=== PATIENT | female | born 1995 | race Caucasian/White ===

== ENCOUNTER 2021-07-15 12:36 | Inpatient (IN) | payer SELFPAY ==
[~2021-07-15] VITALS: Ht 165.1 cm; Wt 79.4 kg
[2021-07-15] MEDS ORDERED: ONDANSETRON 4 MG/2 ML VIAL IV ONE (13:00)
[2021-07-15 13:15] LABS: HEMATOCRIT 37.4 % (31.2-41.9); MEAN CORPUSCULAR HEMOGLOBIN 28.2 uug (24.7-32.8); MEAN CORPUSCULAR VOLUME 84.3 fL (75.5-95.3); PLATELET COUNT (AUTO) 287 K/uL (179-408)
[2021-07-15] MEDS ORDERED: LORAZEPAM 2 MG/1 ML VIAL ONE (13:17)
[2021-07-15] MEDS ORDERED: ONDANSETRON 4 MG/2 ML VIAL ONE (13:17)
[2021-07-15 13:24] LABS: CARBON DIOXIDE 26 mmol/L (21-32); CHLORIDE 103 mmol/L (98-107); CREATININE 0.6 mg/dL (0.6-1.3); GLUCOSE 132 mg/dL (74-106); POTASSIUM 3.8 mmol/L (3.5-5.1); UREA NITROGEN, BLOOD 8 mg/dL (7-18)
--- NOTE | 2021-07-15 13:24 | NUR ---
PT IS IN ROOM #2B. DR PAGAN EVALUATED THE PT.
[2021-07-15 13:29] LABS: CREATINE KINASE, TOTAL 72 U/L (26-192); ETHANOL < 3 MG/DL (0-0)
[2021-07-15 13:30] LABS: ALANINE AMINOTRANSFERASE 25 U/L (14-59); ALKALINE PHOSPHATASE 75 U/L (50-136); ASPARTATE AMINOTRANSFERASE 24 U/L (15-37); BILIRUBIN,DIRECT 0.2 mg/dL (0.0-0.2); BILIRUBIN,TOTAL 0.8 mg/dL (0.2-1.0); TOTAL PROTEIN, SERUM 8.1 g/dL (6.4-8.2)
[2021-07-15] MEDS ORDERED: VITAMIN B1 PO (14:13)
[2021-07-15] MEDS ORDERED: LEVE500T9 PO (14:13)
[2021-07-15] MEDS ORDERED: DIAZ5TAB PO (14:13)
[2021-07-15] MEDS ORDERED: MULT-594 PO (14:13)
[2021-07-15] MEDS ORDERED: TRAZ-257 PO (14:13)
[2021-07-15] MEDS ORDERED: ONDA4TAB5 PO (14:13)
[2021-07-15] MEDS ORDERED: FOLI1TAB27 PO (14:13)
[2021-07-15] MEDS ORDERED: SUBUTEX PO (14:13)
[2021-07-15] MEDS ORDERED: FLEXERIL PO (14:13)
[2021-07-15] MEDS ORDERED: GABA600T12 PO (14:13)
[2021-07-15] MEDS ORDERED: DESV50TA PO (14:13)
[2021-07-15] MEDS ORDERED: HYDR-501 PO (14:13)
[2021-07-15] MEDS ORDERED: LORAZEPAM 2 MG/1 ML VIAL IV ONE (15:00)
[2021-07-15 15:35] LABS: *AMPHETAMINE, URINE NEGATIVE (NEGATIVE); *CANNABINOID, URINE NEGATIVE (NEGATIVE); *COCCAINE, URINE NEGATIVE (NEGATIVE); *OPIATE, URINE NEGATIVE (NEGATIVE); *PHENCYCLIDINE SCREEN,URINE NEGATIVE (NEGATIVE)
--- NOTE | 2021-07-15 17:50 | NUR ---
report was given to furnace brazer. pt was transfered to room #301b.
[2021-07-15 18:01] VITALS: BP 120/58
[2021-07-15] MEDS ORDERED: TRAZODONE 100 MG TABLET PO PRN (19:15)
[2021-07-15] MEDS ORDERED: ACETAMINOPHEN 325 MG TABLET PO PRN (19:15)
[2021-07-15] MEDS ORDERED: hydrOXYzine HCL 25 MG TABLET PO PRN (19:15)
[2021-07-15] MEDS ORDERED: LORAZEPAM 2 MG/1 ML VIAL IV PRN (19:15)
[2021-07-15] MEDS ORDERED: ONDANSETRON 4 MG/2 ML VIAL IV PRN (19:15)
--- NOTE | 2021-07-15 20:00 | NUR ---
RECEIVED PATIENT AWAKE IN BED. A/O X4. DENIES ANY PAIN. NO SOB NOTED. VSS. ON TELE SR. PATIENT C/O ANXIETY. ASKING FOR HER VALIUM. ALL NEEDS ATTENDED. CALL LIGHT IN REACH. WILL CONTINUE TO MONITOR AND ASSESS.
[2021-07-15] MEDS: DIAZEPAM 5 MG TABLET PO PRN (20:32)
[2021-07-15] MEDS: levETIRAcetam 500 MG TABLET PO SCH (20:32)
--- NOTE | 2021-07-15 22:15 | NUR ---
PATIENT ASLEEP IN BED. ON TELE SR. PATIENT HAD A RUN OF ST UP TO 140. PATIENT ASLEEP IN BED. NO SEIZURE NOTED. WILL CONTINUE TO MONITOR AND ASSESS.
[2021-07-16 00:14] VITALS: BP 105/62
[2021-07-16] MEDS: DIAZEPAM 5 MG TABLET PO PRN (04:19)
[2021-07-16 04:29] VITALS: BP 102/48
[2021-07-16 06:02] LABS: HEMATOCRIT 33.8 % (31.2-41.9); MEAN CORPUSCULAR HEMOGLOBIN 27.8 uug (24.7-32.8); MEAN CORPUSCULAR VOLUME 85.5 fL (75.5-95.3); PLATELET COUNT (AUTO) 234 K/uL (179-408)
--- NOTE | 2021-07-16 06:26 | NUR ---
Patient slept well throughout the night. On tele sr. Call light in reach.
[2021-07-16] MEDS ORDERED: PANTOPRAZOLE SODIUM 40 MG TABLET.DR PO SCH (07:00)
[2021-07-16 07:15] LABS: BILIRUBIN,TOTAL 0.8 mg/dL (0.2-1.0); CREATININE 0.6 mg/dL (0.6-1.3); MAGNESIUM 2.2 mg/dL (1.8-2.4); PHOSPHOROUS 3.3 mg/dL (2.5-4.9); POTASSIUM 3.7 mmol/L (3.5-5.1); TOTAL PROTEIN, SERUM 7.3 g/dL (6.4-8.2)
[2021-07-16 07:35] LABS: THYROID STIMULATING HORMONE 0.286 mIU/mL (0.358-3.740)
--- NOTE | 2021-07-16 07:55 | NUR ---
ALERT AND ORIENTED STATED THAT SHE FEELS VERY ANXIOUS NEEDED TO RELAX ASKING FOR SUBAXON CALLED BOB SUAZO EPIC PROVIDER AND LEFT HER A MESSAGE.
--- NOTE | 2021-07-16 08:20 | NUR ---
PATIENT STATED WANTS TO GO AMA ENCOURAGED HER TO WAIT FOR THE EPIC PROVIDER AND SHE SAID OKAY.
[2021-07-16] MEDS: levETIRAcetam 500 MG TABLET PO SCH (08:26)
[2021-07-16] MEDS ORDERED: ONDANSETRON 4 MG/2 ML VIAL IV ONE (08:45)
--- NOTE | 2021-07-16 08:54 | NUR ---
ZOFRAN ADDITIONAL ONE DOSE GIVEN TO PATIENT FOR NAUSEA SHE STATED THAT SHE FEELS LIKE VOMITING DESPITE THE FACT THAT SHE RECEIVED ZOFRAN AT 0500
[2021-07-16] MEDS ORDERED: Medication Not On Formulary EA (Multivitamins (Multivitamin) 1 TAB) PO SCH (09:00)
[2021-07-16] MEDS ORDERED: FOLIC ACID 1 MG TABLET PO SCH (09:00)
[2021-07-16] MEDS ORDERED: THIAMINE HCL 100 MG TABLET PO SCH (09:00)
[2021-07-16] MEDS ORDERED: MULTIVITAMINS,THERAPEUTIC TABLET PO SCH (09:00)
--- NOTE | 2021-07-16 10:00 | NUR ---
CALL RECEIVED FROM JOYCE THE DIRECTOR [employer] RESEARCH AT THE [facility] WHERE PATIENT LIVES AND STATED THAT UNLESS PATIENT IS MEDICALLY CLEAR AND DISCHARGED THEY WILL NOT BE ABLE TO TAKE HER BACK AT THE [facility].
--- NOTE | 2021-07-16 10:30 | NUR ---
BOB TRUJILLO AWARE THAT PATIENT WANTS TO LEAVE DID NOT WANT TO WAIT FOR HER STATED IF PATIENT IS ALERT AND ORIENTED SHE CAN LEAVE AGAINST MEDICAL ADVICE IF SHE WISHES.
--- NOTE | 2021-07-16 10:45 | NUR ---
PATIENT REMOVED HER HEPLOCK HERSELF WITHOUT WAITING FOR ME NOTED BLEEDING PRESSURE APPLIED AND GAUZE WITH TAPE APPLIED PATIENT SIGNED THE AGAINST MEDICAL ADVISE AND HER PERSONAL BELONGINGS AND STATED MUST LEAVE AND WILL GO TO THE [facility] AND DIRECTOR PATIENT ACCOUNTING ALL HER STUFF SINCE THEY WILL NOT BE ABLE TO TAKE HER BACK BOB TRUJILLO NOTIFIED.SHE LEFT AT THIS TIME STATED SHE HAS A RIDE WAITHING FOR HER.
== END 2021-07-16 10:45 | disposition left against medical advice (07) | DRG 100 ==
LOC: ER 12:36 → TELE3 17:34 → MEDSURG3 07-16 08:30
PROVIDERS: ADMIT Internal Medicine; ATTEND Nurse Practitioner Acute Care
DX: G40.909 Epilepsy, unspecified, not intractable, without status epilepticus (principal); G92 Toxic encephalopathy; F13.10 Sedative, hypnotic or anxiolytic abuse, uncomplicated; E66.9 Obesity, unspecified; Z68.29 Body mass index [BMI] 29.0-29.9, adult; Z20.822 Contact with and (suspected) exposure to COVID-19; Z80.0 Family history of malignant neoplasm of digestive organs; F10.10 Alcohol abuse, uncomplicated; Z79.899 Other long term (current) drug therapy; Z88.1 Allergy status to other antibiotic agents; Z88.0 Allergy status to penicillin
CPT/HCPCS: 36415; 83605; 83735; 84100; 84443; 85025; 93005; A4663; G0378; G0480; J2060; J2405; J7030

== ENCOUNTER 2022-12-29 13:17 | Emergency (ER) | payer MEDICAID ==
[~2022-12-29] VITALS: Ht 165.1 cm; Wt 72.6 kg
[~2022-12-29 13:17] MED LIST: DESV50TA PO; DIAZ5TAB PO; FLEXERIL PO; FOLI1TAB27 PO; GABA600T12 PO; HYDR-501 PO; LEVE500T9 PO; MULT-594 PO; ONDA4TAB5 PO; SUBUTEX PO; TRAZ-257 PO; VITAMIN B1 PO
[2022-12-29] MEDS ORDERED: IV NORMAL SALINE 1000 ML BAG IV ONE (13:30)
[2022-12-29 13:44] LABS: MEAN CORPUSCULAR HEMOGLOBIN 28.7 uug (24.7-32.8); MEAN CORPUSCULAR VOLUME 84.5 fL (75.5-95.3); PLATELET COUNT (AUTO) 274 K/uL (179-408)
[2022-12-29 14:00] LABS: ALANINE AMINOTRANSFERASE 21 U/L (14-59); ALKALINE PHOSPHATASE 90 U/L (50-136); ASPARTATE AMINOTRANSFERASE 23 U/L (15-37); BILIRUBIN,DIRECT 0.2 mg/dL (0.0-0.2); BILIRUBIN,TOTAL 0.8 mg/dL (0.2-1.0); CARBON DIOXIDE 30 mmol/L (21-32); CHLORIDE 100 mmol/L (98-107); CREATININE 0.6 mg/dL (0.6-1.3); GLUCOSE 99 mg/dL (74-106); POTASSIUM 3.5 mmol/L (3.5-5.1); TOTAL PROTEIN, SERUM 8.7 g/dL (6.4-8.2); UREA NITROGEN, BLOOD 8 mg/dL (7-18)
[2022-12-29 14:01] LABS: ACETAMINOPHEN < 2.0 ug/mL (10-30)
[2022-12-29 14:39] LABS: ETHANOL < 3 MG/DL (0-0)
--- NOTE | 2022-12-29 14:56 | NUR ---
patient non compliant refused care Dr Davey notified, patient wants to go home without completed treatment.
[2022-12-29 15:39] VITALS: BP 142/80
--- NOTE | 2022-12-29 15:40 | NUR ---
no seizure, lab WNL re-evaluated by Dr Davey d/c home with instructions after care reviewed understood left er ambulatory with steady gait, no pain, vss, manager social media talked to patient prior to departure.
--- NOTE | 2022-12-29 15:43 | NUR ---
Social Work consult was requested for a patient in the emergency room for substance abuse resources. Patient is a 27-year-old female. Patient is alert and oriented X4. Patient presents with anxious mood and congruent affect. Patient states her primary contact is her boyfriend, Giles ([phone]) who she lives with at [address] [place] [address]. 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 Patient states she has a history of substance abuse, and there is no toxicology report. Patient states she is on Suboxone maintenance with [facility] in [place]. medical social worker provided support with motivational interviewing, education regarding opioid dependence, brief intervention and referral to medication assisted treatment to [address] [address] ([phone]), [facility] [address] [facility] [address] ([phone]), and [address] [address] . Patient states she has a history of anxiety and is taking Pristiq and gabapentin. Patient denies suicidal or homicidal ideation. Patients plan for discharge is for her boyfriend, Giles ([phone]) to come to the hospital to pick her up or take an uber back to [address] [place] [address].
== END 2022-12-29 15:42 | disposition home or self-care (01) ==
LOC: ER 13:17
DX: F44.5 Conversion disorder with seizures or convulsions (principal); F41.9 Anxiety disorder, unspecified; Z88.0 Allergy status to penicillin; Z79.899 Other long term (current) drug therapy
CPT/HCPCS: 36415; 85025; 85730; A4663; G0480; J7040

== ENCOUNTER 2025-03-02 14:41 | Emergency (ER) | payer MEDICAID, OTHER ==
[~2025-03-02] VITALS: Ht 165.1 cm; Wt 64.4 kg
[2025-03-02 16:19] LABS: BASOPHILS % (AUTO) 0.1 % (0.0-2.0); EOSINOPHILS # (AUTO) 0.2 K/uL (0.0-0.7); EOSINOPHILS % (AUTO) 1.3 % (0.0-7.0); HEMATOCRIT 35.5 % (31.2-41.9); HEMOGLOBIN 11.8 g/dL (10.9-14.3); LYMPHOCYTES # (AUTO) 1.2 K/uL (0.8-4.8); LYMPHOCYTES % (AUTO) 7.2 % (20.5-51.5); MEAN CORPUSCULAR HEMOGLOBIN 28.1 uug (24.7-32.8); MEAN CORPUSCULAR HGB CONC 33 g/dL (32.3-35.6); MEAN CORPUSCULAR VOLUME 84.6 fL (75.5-95.3); MONOCYTES # (AUTO) 0.8 K/uL (0.1-1.30); MONOCYTES % (AUTO) 5.2 % (0.0-11.0); NEUTROPHILS # (AUTO) 14.2 K/uL (1.8-8.9); NEUTROPHILS % (AUTO) 86.2 % (38.5-71.5); PLATELET COUNT (AUTO) 172 K/uL (179-408); RED CELL DISTRIBUTION WIDTH 13.3 % (12.3-17.7); WHITE BLOOD COUNT (AUTO) 16.4 K/uL (3.8-11.8)
[2025-03-02 16:29] LABS: DIFFERENTIAL COMMENT 1
[2025-03-02] MEDS ORDERED: CEFAZOLIN 1 G VIAL ONE (16:30)
[2025-03-02] MEDS: CEFAZOLIN 1 G VIAL IM ONE (16:31)
[2025-03-02] MEDS: IV NS 1000 ML 1,000 ML IV ONE (16:35)
[2025-03-02 16:36] LABS: CREATININE 0.6 mg/dL (0.6-1.3); POTASSIUM 3.6 mmol/L (3.5-5.1)
[2025-03-02 16:43] LABS: ALBUMIN 3.3 g/dL (3.4-5.0); BILIRUBIN,TOTAL 1.4 mg/dL (0.2-1.0); CALCIUM 9.4 mg/dL (8.5-10.1)
[2025-03-02] MEDS ORDERED: IBUPROFEN 100 MG/5 ML LIQUID UDC ONE (17:20)
[2025-03-02] MEDS: IBUPROFEN 100 MG/5 ML LIQUID UDC PO ONE (17:20)
[2025-03-02] MEDS ORDERED: LORA-258 PO (20:48)
[2025-03-02] MEDS ORDERED: GABA800T11 PO (20:48)
[2025-03-02] MEDS ORDERED: BUPR1FIL3 SL (20:48)
[2025-03-02 21:15] VITALS: O2SAT 99
[2025-03-02 21:34] LABS: *BILIRUBIN,URIN NEGATIVE (NEGATIVE); *BLOOD, URINE NEGATIVE (NEGATIVE); *CLARITY,URINE CLEAR (CLEAR); *COLOR,URINE YELLOW (YELLOW); *KETONES,URINE 2+ (NEGATIVE); *PROTEIN,URINE 2+ (NEGATIVE); LEUKOCYTE ESTERASE ,URINE NEGATIVE (NEGATIVE); NITRITE, URINE NEGATIVE (NEGATIVE); UGLUCOSE NEGATIVE (NEGATIVE)
[2025-03-02 21:46] LABS: RBC,URINE 0-3 /HPF (0-3)
[2025-03-02 21:47] LABS: BACTERIA,URINE FEW /HPF (NONE SEEN); SQUAMOUS EPITHELIAL CELL,UR FEW /HPF (NONE SEEN)
== END 2025-03-02 21:28 | disposition short-term general hospital (02) ==
LOC: ER 14:41
DX: L03.114 Cellulitis of left upper limb (principal); F19.10 Other psychoactive substance abuse, uncomplicated; Z79.899 Other long term (current) drug therapy; Z90.49 Acquired absence of other specified parts of digestive tract; Z86.69 Personal history of other diseases of the nervous system and sense organs; Z87.09 Personal history of other diseases of the respiratory system; Z86.59 Personal history of other mental and behavioral disorders; Z20.822 Contact with and (suspected) exposure to COVID-19
CPT/HCPCS: 99285; 96365; 96366; 87426; 80053; 81001; 82607; 83735; 85025; 87040; 36415; 36410; J0690; J7040; A4606; A4663